=== PATIENT | female | born 1980 | race Caucasian/White ===

== ENCOUNTER → 2016-05-23 | Outpatient (CLI) | payer OTHER ==
[~2016-05-23] MED LIST: LINZ290C PO; MULT1TAB10 PO; PANT40TA2 PO; STOO100T PO; ZOLO50TA PO
--- NOTE | 2016-05-23 17:01 | REP ---
Clinical: thoracic paraspinal pain. Technique: AP, lateral, and swimmers views. Findings: Alignment and kyphosis is maintained. Vertebral bodies intact. No acute fracture / compression injury or subluxation. No degenerative changes. Paravertebral soft tissues are normal. Impression: Normal thoracic spine series. Signed by Anibal Kee MD 05/23/2016 04:52 P
== END ==
LOC: M LRY 16:18
PROVIDERS: ATTEND Family Medicine
DX: M54.6 Pain in thoracic spine (principal)

== ENCOUNTER → 2016-05-25 | Outpatient (REF) | payer OTHER | LOC: M SFHCWAGY 11:12 | PROVIDERS: ATTEND Nurse Practitioner Family | DX: Z12.4 Encounter for screening for malignant neoplasm of cervix (principal) ==

== ENCOUNTER → 2016-06-11 | Outpatient (CLI) | payer OTHER ==
[~2016-06-11] VITALS: Ht 165.1 cm; Wt 70.3 kg
[~2016-06-11] MED LIST changes: +NS 1,000 ML IV SCH; +PROPOFOL 200 MG/20 ML VIAL As Ordered ONE
--- NOTE | 2016-06-11 13:08 | ROOR ---
Patient Name: Margaret Triplett Procedure Date: 06/11/2016 12:44 PM Date of : 1980 Age: 36 Room: [facility] Gender: Female Note Status: Finalized Procedure: Colonoscopy Indications: Generalized abdominal pain, Irritable bowel syndrome with constipation, Constipation Providers: Andreas MCCALLUM MD Referring MD: Claribel BERNABE MD Requesting Provider: Medicines: Monitored Anesthesia Care Complications: No immediate complications. Procedure: Pre-Anesthesia Assessment: - The heart rate, respiratory rate, oxygen saturations, blood pressure, adequacy of pulmonary ventilation, and response to care were monitored throughout the procedure. The Colonoscope was introduced through the anus and advanced to the terminal ileum, with identification of the appendiceal orifice and IC valve. The colonoscopy was performed without difficulty. The patient tolerated the procedure well. The quality of the bowel preparation was good. The bowel preparation used was polyethylene glycol (PEG) and magnesium citrate. Findings: The perianal and digital rectal examinations were normal. The colon (entire examined portion) was significantly redundant. The entire examined colon appeared normal on direct and retroflexion views. The terminal ileum appeared normal. (Exam: Complete, Prep: Good or Excellent.) Impression: -(Exam: Complete, Prep: Good ) - Redundant colon. - The entire colon is normal on direct and retroflexion views. - The examined portion of the ileum was normal. - No specimens collected. Recommendation: - Use Linzess (linaclotide) 290 mcg PO daily. Andreas Mccallum MD Andreas MCCALLUM MD 06/11/2016 1:08:40 PM This report has been signed electronically. Number of Addenda: 0 Note Initiated On: 06/11/2016 12:44 PM Estimated Blood Loss: Estimated blood loss: none.
[2016-06-11 13:25] VITALS: BP 115/58
== END | disposition home or self-care (01) ==
LOC: M OPP 11:29
PROVIDERS: ATTEND Internal Medicine Gastroenterology
DX: K58.1 Irritable bowel syndrome with constipation (principal); Q39.9 Congenital malformation of esophagus, unspecified; E78.5 Hyperlipidemia, unspecified; F33.9 Major depressive disorder, recurrent, unspecified; F41.9 Anxiety disorder, unspecified; E34.9 Endocrine disorder, unspecified; Z79.899 Other long term (current) drug therapy

== ENCOUNTER → 2016-10-13 | Outpatient (CLI) | payer OTHER ==
[~2016-10-13] MED LIST changes: +CIPR-249 PO; +FLAG500T PO; +IBUP-1022 PO; +MIRA3350 PO; -NS 1,000 ML IV SCH; +PROBCAP4 PO; -PROPOFOL 200 MG/20 ML VIAL As Ordered ONE
--- NOTE | 2016-10-13 10:06 | REP ---
Gastric emptying nuclear scintigraphy: History: Nausea, generalized abdominal pain. Technique: 0.949 mCi of technetium-99m sulfur colloid was ingested in two scrambled eggs and 6 ounces of water and sequential anterior and posterior images are acquired for an 89-minute imaging observation period. Regions of interest are drawn around the stomach to plot gastric emptying. Scintigraphic findings: Expected T1/2 is 90 minutes. 58 % emptying is observed in this patient during the 89-minute imaging observation period, for a calculated T1/2 in this patient of 83 minutes. Impression: Normal gastric emptying. Signed by Emerson Chavez MD 10/13/2016 09:57 A
== END ==
LOC: M RAD 07:57
PROVIDERS: ATTEND Physician Assistant Medical
DX: R11.2 Nausea with vomiting, unspecified (principal); R68.81 Early satiety; R10.84 Generalized abdominal pain

== ENCOUNTER → 2017-05-02 | Outpatient (REF) | payer OTHER | LOC: M LAB REF 09:20 | DX: R39.15 Urgency of urination (principal) ==

== ENCOUNTER → 2017-07-20 | Outpatient (REF) | payer OTHER ==
[2017-07-20 17:12] LABS: CHLAMYDIA DNA AMPLIFICATION NEGATIVE (NEGATIVE); GC DNA AMPLIFICATION NEGATIVE (NEGATIVE)
== END ==
LOC: M SFHCWAGY 15:27
DX: N89.8 Other specified noninflammatory disorders of vagina (principal); Z11.3 Encounter for screening for infections with a predominantly sexual mode of transmission

== ENCOUNTER 2017-11-02 13:19 | Emergency (ER) | payer OTHER | END 2017-11-02 16:08 | disposition home or self-care (01) | LOC: M ED 13:19 | DX: H04.512 Dacryolith of left lacrimal passage (principal); F41.9 Anxiety disorder, unspecified; F32.9 Major depressive disorder, single episode, unspecified; Z79.899 Other long term (current) drug therapy; Z88.1 Allergy status to other antibiotic agents | CPT/HCPCS: 99283 ==

== ENCOUNTER 2018-02-22 15:05 | Emergency (ER) | payer OTHER ==
[2018-02-22] MEDS: METOCLOPRAMIDE INJ 10MG/2ML VIAL (J2765) IV (15:56)
[2018-02-22] MEDS: NS 1,000 ML IV (15:56)
[2018-02-22 15:58] LABS: BASO # 0.1 10^3/uL (0.0-0.2); BASO % 0.6 % (0.0-1.0); EOS % 0.3 % (0.0-3.0); HEMATOCRIT 44.5 % (36.0-47.0); HEMOGLOBIN 15.2 g/dl (12.0-15.5); IMMATURE GRANULOCYTE % 0.3 % (0-3.0); LYMPH # 2.1 10^3/uL (1.5-4.5); LYMPH % 20.3 % (24.0-44.0); MEAN CORPUSCULAR HEMOGLOBIN 31.5 pg (27.0-33.0); MEAN CORPUSCULAR HGB CONC 34.2 g/dl (32.0-36.5); MEAN CORPUSCULAR VOLUME 92.1 fl (80.0-96.0); MONO # 0.7 10^3/uL (0.0-0.8); MONO % 6.7 % (0.0-5.0); NEUTROPHILS # 7.3 10^3/uL (1.8-7.7); NEUTROPHILS % 71.8 % (36.0-66.0); PLATELET COUNT, AUTOMATED 290 10^3/uL (150-450); RED BLOOD COUNT 4.83 10^6/uL (4.00-5.40); RED CELL DISTRIBUTION WIDTH 12.7 % (11.5-14.5); WHITE BLOOD COUNT 10.2 10^3/uL (4.0-10.0)
[2018-02-22 16:23] LABS: ALBUMIN 3.9 GM/DL (3.2-5.2); ALBUMIN/GLOBULIN RATIO 1.05 (1.00-1.93); ALKALINE PHOSPHATASE 66 U/L (45-117); ALT/SGPT 22 U/L (12-78); ANION GAP 9 MEQ/L (8-16); AST/SGOT 15 U/L (7-37); BILIRUBIN,DIRECT 0.1 MG/DL (0.0-0.2); BILIRUBIN,TOTAL 0.5 MG/DL (0.2-1.0); BLOOD UREA NITROGEN 7 MG/DL (7-18); CALCIUM LEVEL 8.8 MG/DL (8.5-10.1); CARBON DIOXIDE LEVEL 24 MEQ/L (21-32); CHLORIDE LEVEL 104 MEQ/L (98-107); CREATININE FOR GFR 0.82 MG/DL (0.55-1.30); GLOMERULAR FILTRATION RATE > 60.0 (>60); GLUCOSE, FASTING 86 MG/DL (70-100); LIPASE 142 U/L (73-393); POTASSIUM SERUM 4.2 MEQ/L (3.5-5.1); SODIUM LEVEL 137 MEQ/L (136-145); TOTAL PROTEIN 7.6 GM/DL (6.4-8.2)
[2018-02-22 17:02] LABS: KETONE, URINE AUTO RFX 2+ mg/dL (NEGATIVE); LEUKOCYTE ESTERASE UR AUTO RFX NEGATIVE (NEGATIVE); MUCUS, URINE RFX MODERATE (NEGATIVE); NITRITE, URINE AUTO RFX NEGATIVE (NEGATIVE); RBC, URINE AUTO RFX 4 /HPF (0-3); SPECIFIC GRAVITY UR AUTO RFX 1.024 (1.002-1.035); SQUAM EPITHELIAL CELL UR AURFX 2 /HPF (0-6); WBC, URINE AUTO RFX 2 /HPF (0-3)
== END 2018-02-22 17:35 | disposition home or self-care (01) ==
LOC: M ED 15:05
DX: F19.939 Other psychoactive substance use, unspecified with withdrawal, unspecified (principal); F41.9 Anxiety disorder, unspecified; F32.9 Major depressive disorder, single episode, unspecified; Z72.0 Tobacco use; Z79.899 Other long term (current) drug therapy; Z88.1 Allergy status to other antibiotic agents
CPT/HCPCS: J2765

== ENCOUNTER → 2018-02-28 | Outpatient (REF) | payer OTHER | LOC: M LAB REF 16:16 | DX: R30.0 Dysuria (principal) | CPT/HCPCS: 87086 ==

== ENCOUNTER 2020-01-29 17:01 | Emergency (ER) | payer MEDICAID, OTHER, SELFPAY ==
[~2020-01-29] VITALS: Ht 165.1 cm; Wt 75.5 kg
[~2020-01-29 17:01] MED LIST changes: +AUGM875T28 PO; +BUPR150T3; +OLAN10TA2; -PANT40TA2 PO; +PANT40TA29 PO; +REGL10TA6 PO; +SPRI28TA
[2020-01-29] MEDS ORDERED: ZOLO50TA PO ×2 (17:10→19:16)
[2020-01-29 18:55] LABS: BASO # 0.1 10^3/uL (0.0-0.2); BASO % 0.7 % (0.0-1.0); EOS # 0.2 10^3/uL (0.0-0.5); EOS % 1.8 % (0.0-3.0); HEMATOCRIT 41.9 % (36.0-47.0); HEMOGLOBIN 13.9 g/dl (12.0-15.5); LYMPH # 2.6 10^3/uL (1.5-5.0); LYMPH % 28.9 % (24.0-44.0); MEAN CORPUSCULAR HEMOGLOBIN 31.9 pg (27.0-33.0); MEAN CORPUSCULAR HGB CONC 33.2 g/dl (32.0-36.5); MEAN CORPUSCULAR VOLUME 96.1 fl (80.0-96.0); MONO # 0.6 10^3/uL (0.0-0.8); MONO % 7.1 % (0.0-5.0); NEUTROPHILS # 5.5 10^3/uL (1.5-8.5); NEUTROPHILS % 61.2 % (36.0-66.0); PLATELET COUNT, AUTOMATED 284 10^3/uL (150-450); RED BLOOD COUNT 4.36 10^6/uL (4.00-5.40)
[2020-01-29 19:08] LABS: INR 0.96
[2020-01-29] MEDS ORDERED: ALPRAZolam 0.5 MG TAB PO ONE (19:15)
[2020-01-29 19:32] LABS: ACETAMINOPHEN LEVEL 8.8 UG/ML (10.0-30.0); ALBUMIN 3.9 GM/DL (3.2-5.2); ALT/SGPT 14 U/L (12-78); BILIRUBIN,DIRECT < 0.1 MG/DL (0.0-0.2); BILIRUBIN,TOTAL 0.2 MG/DL (0.2-1.0); FREE THYROXINE INDEX 2.8 % (1.3-4.8); LIPASE 183 U/L (73-393); T UPTAKE 31 % (30-39); THYROXINE (T4) 9.1 UG/DL (4.5-12.0); TOTAL PROTEIN 7.4 GM/DL (6.4-8.2)
[2020-01-29 20:53] VITALS: BP 119/71
== END 2020-01-29 20:58 | disposition home or self-care (01) ==
LOC: M ED 17:01
DX: F41.9 Anxiety disorder, unspecified (principal); R09.89 Other specified symptoms and signs involving the circulatory and respiratory systems; N92.6 Irregular menstruation, unspecified; K21.9 Gastro-esophageal reflux disease without esophagitis; F32.9 Major depressive disorder, single episode, unspecified; Z79.899 Other long term (current) drug therapy; Z88.1 Allergy status to other antibiotic agents
CPT/HCPCS: 36415; 80047; 80076; 81001; 83690; 84436; 84443; 84479; 84702; 85025; 85610; 99283; G0480

== ENCOUNTER 2020-03-10 11:03 | Emergency (ER) | payer SELFPAY ==
[~2020-03-10] VITALS: Ht 12.7 cm; Wt 78.6 kg
[2020-03-10] MEDS ORDERED: ZOLO25TA PO (12:25)
[2020-03-10 12:35] VITALS: BP 119/56
== END 2020-03-10 13:00 | disposition home or self-care (01) ==
LOC: M ED 11:03
DX: F41.9 Anxiety disorder, unspecified (principal); F32.9 Major depressive disorder, single episode, unspecified; Z88.1 Allergy status to other antibiotic agents; Z79.899 Other long term (current) drug therapy

== ENCOUNTER 2020-05-16 10:44 | Emergency (ER) | payer MEDICAID, SELFPAY ==
[~2020-05-16] VITALS: Ht 165.1 cm; Wt 77.5 kg
[~2020-05-16 10:44] MED LIST changes: -BUPR150T3; +BUPR150T4; +ZOLO25TA PO
--- OUTSIDE RECORDS SUMMARY | 2020-05-16 10:55 | CCD ---
Author Author [facility] Organization [facility] Address Unknown Phone Unavailable Support Name Relationship Address Phone QUINN [place] [address] Olvin Sanchez DDS Next Of Kin [address] [place] [address] ROBERTO CARLOS GERONIMO Next Of Kin [address] [facility] [address] [place] [address] BOBALLIE Next Of Kin [address] [address] [employer] Next Of Kin [address] [place] [address] DAYSINN Next Of Kin [address] [facility] [place] [address] DAYS INN Next Of Kin [address] [address] [place] [address] UE Next Of Kin Unknown Unavailable DEBORAH WOODS Next Of Kin [address] [place] [address] UNEMPLOYED Next Of Kin [address] [place] [address] [employer] Next Of Kin [address] [place] [address] HARRISON WADDELL Next Of Kin [address] [facility] [address]GE [address] [place] [address] [employer] Next Of Kin [address] [facility] [address] [place] [address] LAUREANO NUNEZ Next Of Kin [address] [place] [address] DEBORAH WOODS ECON [address] [place] [address] [phone] Deborah Chau ECON Unknown Unavailable Re-disclosure Warning The records that you are about to access may contain information from federally-assisted alcohol or drug abuse programs. If such information is present, then the following federally mandated warning applies: This information has been disclosed to you from records protected by federal confidentiality rules (42 CFR part 2). The federal rules prohibit you from making any further disclosure of this information unless further disclosure is expressly permitted by the written consent of the person to whom it pertains or as otherwise permitted by 42 CFR part 2. A general authorization for the release of medical or other information is NOT sufficient for this purpose. The Federal rules restrict any use of the information to criminally investigate or prosecute any alcohol or drug abuse patient.The records that you are about to access may contain highly sensitive health information, the redisclosure of which is protected by Article 27-F of the [facility] Public Health law. If you continue you may have access to information: Regarding HIV / AIDS; Provided by facilities licensed or operated by the [facility] Office of Mental Health; or Provided by the [facility] Office for People With Developmental Disabilities. If such information is present, then the following [facility] mandated warning applies: This information has been disclosed to you from confidential records which are protected by state law. State law prohibits you from making any further disclosure of this information without the specific written consent of the person to whom it pertains, or as otherwise permitted by law. Any unauthorized further disclosure in violation of state law may result in a fine or nursing home sentence or both. A general authorization for the release of medical or other information is NOT sufficient authorization for further disc losure. Family History Family Member Name Family Member Gender Family Member Status Date o f Status Description Data Source(s) Unknown Unknown Problem MEDENT ([facility]) maternal aunt Unknown Unknown Problem MEDENT ([facility] ) Aunt/ moms twin dx age 54 Encounters Encounter Providers Location Date Indications Data Source(s ) [address] [address] 05/09/2019 12:00:00 AM EST eCW1 ([facility]) Insurance Providers Payer name Policy type / Coverage type Policy ID Covered libertarian ID Covered libertarian's relationship to caputo Policy Caputo Plan Information SELF PAY ONLY [id number] SP [id number] UN COMMUNITY PLAN MCDO [id number] SP [id number] UN COMMUNITY PLAN MCDO [id number] SP [id number] Managed Care - [facility] Community Plan P UNAVAILABLE S UNAVAILABLE Medicaid S [id number] S [id number] ANSI-Medicaid [id number] ANSI-Medicaid [id number] ANSI-Medicaid [id number] ANSI-Medicaid [id number] ANSI-Medicaid [id number] ANSI-Medicaid [id number] ANSI-Medicaid [id number] ANSI-Medicaid [id number] ANSI-Medicaid [id number] ANSI-Medicaid [id number] ANSI-Medicaid [id number] ANSI-Medicaid [id number] ANSI-Medicaid [id number] Managed Care - [facility] UNAVAILABLE S [facility] ANSI-Medicaid [id number] [facility] [id number] Self [id number] ANSI-Medicaid [id number] ANSI-Medicaid [id number] ANSI-Medicaid [id number] ANSI-Medicaid [id number] ANSI-Medicaid [id number] ANSI-Medicaid [id number] ANSI-Medicaid [id number] ANSI-Medicaid [id number] ANSI-Medicaid [id number] ANSI-Medicaid [id number] ANSI-Medicaid [id number] ANSI-Medicaid [id number] ANSI-Medicaid [id number] ANSI-Medicaid [id number] [facility] Health Maintenance Organization (HMO) [id number] Self [id number] [facility] Health Maintenance Organization (HMO) [id number] Self [id number] ANSI-Medicaid [id number] ANSI-Medicaid [id number] ANSI-Medicaid [id number] ANSI-Medicaid [id number] ANSI-Medicaid [id number] ANSI-Medicaid [id number] ANSI-Medicaid [id number] ANSI-Medicaid [id number] ANSI-Medicaid [id number] ANSI-Medicaid [id number] ANSI-Medicaid [id number] ANSI-Medicaid [id number] ANSI-Medicaid [id number] ANSI-Medicaid [id number] ANSI-Medicaid [id number] [facility] I [id number] Self [id number] [facility] Health Maintenance Organization (HMO) [id number] Self [id number] [place] [facility] Health Maintenance Organization (HMO) [id number] Self [id number] [facility](MCAID) O [id number] O [id number] [employer] COMMUNITY PLAN MCDHMO [id number] SP [id number] [place] [facility] Health Maintenance Organization (HMO) [id number] Self [id number] [facility] Health Maintenance Organization (HMO) [id number] Self [id number] [employer] [facility] Medigap Part B [id number] Self [id number] Medicaid [place] Medigap Part B [id number] Self [id number] [facility] Health Maintenance Organization (HMO) [id number] Self [id number] [facility] Medigap Part B [id number] Self [id number] [facility] Medigap Part B [id number] Self [id number] Medicaid [place] Medigap Part B [id number] Self [id number] [facility] Health Maintenance Organization (HMO) [id number] Self [id number] [employer] COMMUNITY PLAN MCDHMO [id number] SP [id number] [employer] COMMUNITY PLAN MCDHMO [id number] SP [id number] MEDICAID [id number] SP [id number] [employer] [facility] Health Maintenance Organization (HMO) Self [facility] Health Maintenance Organization (HMO) Self [facility] SHIELD-CLINIC [id number] [facility] ALEXIS PLAN [id number] SP [id number] [facility]-CLINIC [id number] 18 [id number] Social History Code Duration Value Status Description Data Source(s ) Smoking 05/04/2019 12:00:00 AM EST Current Smoker completed Curre nt Smoker eCW1 ([facility]) Smoking 05/04/2019 12:00:00 AM EST Current Smoker completed Curre nt Smoker eCW1 ([facility]) Smoking 05/04/2019 12:00:00 AM EST Current Smoker completed Curre nt Smoker eCW1 ([facility])
--- OUTSIDE RECORDS SUMMARY | 2020-05-16 10:55 | CCD ---
Author Author [facility] Organization 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 Active 173534349 Problem Genital herpes simplex, unspecified site A60.00 Active 92488589 Problem Bipolar 1 disorder F31.9 Active 858581429 Problem Tobacco use disorder F17.200 Active 036087493 Problem Other chronic pain G89.29 Active 23561655 Problem Herpes simplex vulvovaginitis A60.04 Active 27 455055 Problem Anxiety F41.9 Active 28956596 Problem Dysthymia F34.1 Active 03181368 ALLERGIES Allergen (clinical drug ingredient) Drug/Non Drug Allergy do cumented on EMR Reaction Allergy Type Onset Date Status Doxycycline (Rosacea) rash all over Drug Allergy Active ENCOUNTERS from 1980 to 2020-02-29 Encounter Location Date Provider Diagnosis [facility] [address] [place] [phone] Jul, Deborah Palmer Vaginal odor N89.8 a nd Screening examination for sexually transmitted disease Z11.3 IMMUNIZATIONS Vaccine Route Administration Date Status Influenza (6mo & up) Fluzone Unknown Mar 06, 2014 Ref used SOCIAL HISTORY Tobacco Use: Social History Observation Description Date Details (start date - stop date) Current Smoker Sex Assigned At : Social History Observation Description Sex Assigned At Unknown Sexual Hx: Question Answer Notes Had sex in the last 12 months (vaginal, oral, or anal)? Yes LMP: 04/04/18 Have you ever had an STD? Yes Prevention Strategies discussed: Condoms with Men only Use protection? No Other? No Herpes? No Syphilis? No GC? Yes Chlamydia? Yes Alcohol Screening: Question Answer Notes Did you have a drink containing alcohol in the past year? Ye s Points 1 Interpretation Negative How often did you have six or more drinks on one occas ion in the past year? Never (0 points) How many drinks did you have on a typica l day when you were drinking in the past year? 1 or 2 (0 points) How often did you have a drink containing alcohol in t he past year? Monthly or less (1 point) BMI Care Goal Follow-Up Question Answer Notes Above Normal BMI Follow-Up Dietary management educatio n, guidance, and counseling Tobacco Use: Question Answer Notes Are you a: current every day smoker REASON FOR REFERRAL No Information VITAL SIGNS Weight 154 lbs Jul, Height 65 in Jul, BMI 25.62 kg/m2 Jul, Heart Rate 83 /min Jul, Respiratory Rate 18 /min Jul, Temperature 97.6 degrees Fahrenheit Jul, Oximetry 100 Jul, Blood pressure systolic 130 mm Hg Jul, Blood pressure diastolic 78 mm Hg Jul, MEDICATIONS Medication SIG (Take, Route, Frequency, Duration) Notes Start Da te End Date Status Seroquel 50 MG 1 tablet Once a day Orally 30 day(s) for 30 Active Probiotic - 1 tab Orally Daily Activ e Biotin 1 cap Orally Daily Active Citalopram Hydrobromide 20 MG 1 tablet Orally Once a day for 90 day(s ) Active SEROquel 50 MG 1 tablet Orally Once a day for 30 day(s) Active Zofran 4 MG 1 tablet Orally Twice a day as needed Mar, Active PROCEDURES No Information RESULTS REASON FOR VISIT INFECTION? MEDICAL (GENERAL) HISTORY Type Description Date Medical History Anxiety Medical History Gerd Medical History Allergies Medical History gallstone Medical History Blocked tear duct on left, s/p probing Surgical History 1/2 thyroid removed Surgical History Left side cheek and tear duct Surgical History [place] teeth extraction Surgical History 2002 Surgical History Colonoscopy 03/2016 Surgical History Endoscopy 03/2016 Surgical History eye surgery 11/2017 Hospitalization History Childbirth Hospitalization History Kidney infection at 17 while pregnan t Goals Section No Information Health Concerns No Information MEDICAL EQUIPMENT No Information MENTAL STATUS No Information FUNCTIONAL STATUS No Information ASSESSMENTS Encounter Date Diagnosis Assessment Notes Treatment Notes Treatm ent Clinical Notes Jul, Vaginal odor (ICD-10 - N89.8) heavy menses today, unable to perform wet prep, no odor noted, will treat if cultures pos Jul, Screening examination for se xually transmitted disease (ICD-10 - Z11.3) PLAN OF TREATMENT Medication Medication Name Sig Start Date Stop Date Seroquel 50 MG 1 tablet Once a day Orally 30 day(s) for 30 SEROquel 50 MG 1 tablet Orally Once a day for 30 day(s) Citalopram Hydrobromide 20 MG 1 tablet Orally Once a day for 90 day(s) Treatment Notes Assessment Notes Clinical Notes Vaginal odor heavy menses today, unable to perform wet prep, no odor noted, will treat if cultures pos Next Appt Details prn Reason:f/u after labs Follow Up:prnf/u after labs Insurance Providers Payer Name Payer Address Payer Phone Insured Name Patient Relati onship to Insured Coverage Start Date Coverage End Date [facility] COMMUNITY PLAN [facility] [address] [facility] [address] [phone] LAUREANO NUNEZ self
[2020-05-16] MEDS ORDERED: ACET-683 PO (10:59)
--- OUTSIDE RECORDS SUMMARY | 2020-05-16 11:33 | CCD ---
Author Author [facility] Organization [facility] Address Unknown Phone Unavailable Support Name Relationship Address Phone CHERIE NUNEZ Next Of Kin [address] [place] [address] CH[place] [address] Olvin Sanchez DDS Next Of Kin [address] [place] [address] ROBERTO CARLOS GERONIMO Next Of Kin [phone] [address] BOBALLIE Next Of Kin [address] [address] CONVERGYS Next Of Kin [address] [place] [address] DAYSINN Next Of Kin [address] [facility] [place] [address] DAYS INN Next Of Kin [address] [address] [place] [address] UE Next Of Kin Unknown Unavailable DEBORAH WOODS Next Of Kin [address] [place] [address] UNEMPLOYED Next Of Kin [address] [place] [address] [employer] Next Of Kin [address] [place] [address] HARRISON WADDELL Next Of Kin [address] [facility] J[facility]GE LU[address] [place] [address] [employer] Next Of Kin [address] [facility] [address] [place] [address] LAUREANO NUNEZ Next Of Kin [address] [place] [address] DEBORAH WOODS ECON [address] [place] [address] [phone] Deborah Chau Unknown Unavailable Re-disclosure Warning The records that [...] is protected by Article 27-F of the [facility] Public Health law. If you continue you may have access to information: Regarding HIV / AIDS; Provided by facilities licensed or operated by the [facility] Office of Mental Health; or Provided by the [facility] Office for People With Developmental Disabilities. If such information is present, then the following [facility] mandated warning applies: This information has been [...] law may result in a fine or fpc sentence or both. A general authorization for the release of medical or other information is NOT sufficient authorization for further disc losure. Family History Family Member Name Family Member Gender Family Member Status Date o f Status Description Data Source(s) Unknown Unknown Problem MEDENT ([facility]) maternal aunt Unknown Unknown Problem [facility] Aunt/ moms twin dx age 54 Encounters Encounter Providers Location Date Indications Data Source(s ) [id number] [place] [address] 05/09/2019 12:00:00 AM EST eCW1 ([facility]) Insurance Providers Payer name Policy type / Coverage type Policy ID Covered alliance party ID Covered alliance party's relationship to caputo Policy Caputo Plan Information EMEDNY [id number] SP [id number] SELF PAY ONLY [id number] SP [id number] COMMUNITY PLAN [facility] [id number] SP [id number] [facility] COMMUNITY PLAN MCDO [id number] SP [id number] Managed Care - [facility] Community Plan P UNAVAILABLE S UNAVAILABLE Medicaid S [id number] S [id number] ANSI-Medicaid [id number] ANSI-Medicaid [id number] ANSI-Medicaid [id number] ANSI-Medicaid [id number] ANSI-Medicaid [id number] ANSI-Medicaid [id number] ANSI-Medicaid [id number] ANSI-Medicaid [id number] ANSI-Medicaid [id number] ANSI-Medicaid [id number] ANSI-Medicaid [id number] ANSI-Medicaid [id number] ANSI-Medicaid [id number] Managed Care - [facility] P UNAVAILABLE [facility] ANSI-Medicaid [id number] [facility] I [id number] Self [id number] ANSI-Medicaid [id number] ANSI-Medicaid [id number] ANSI-Medicaid [id number] ANSI-Medicaid [id number] ANSI-Medicaid [id number] ANSI-Medicaid [id number] ANSI-Medicaid [id number] ANSI-Medicaid [id number] ANSI-Medicaid [id number] ANSI-Medicaid [id number] ANSI-Medicaid [id number] ANSI-Medicaid [id number] ANSI-Medicaid [id number] ANSI-Medicaid [id number] [facility] Health Maintenance Organization (HMO) [id number] Self [id number] [facility] Health Maintenance Organization (HMO) [id number] Self [id number] ANSI-Medicaid [id number] ANSI-Medicaid [id number] ANSI-Medicaid [id number] ANSI-Medicaid [id number] ANSI-Medicaid [id number] ANSI-Medicaid [id number] ANSI-Medicaid [id number] ANSI-Medicaid [id number] ANSI-Medicaid [id number] ANSI-Medicaid [id number] ANSI-Medicaid [id number] ANSI-Medicaid [id number] ANSI-Medicaid [id number] ANSI-Medicaid [id number] ANSI-Medicaid [id number] [facility] I [id number] Self [id number] [place] [facility] Maintenance Organization (HMO) [id number] Self [id number] [place] [facility] Health Maintenance Organization (HMO) [id number] Self [id number] [facility] O [id number] O [id number] [employer] COMM[employer] MCDHMO [id number] SP [id number] [place] [facility] Health Maintenance Organization (HMO) [id number] Self [id number] [place] [facility] Health Maintenance Organization (HMO) [id number] Self [id number] [employer] [facility] Ch[facility]/M[facility] Medigap Part B [id number] Self [id number] Medicaid [place] Medigap Part B [id number] Self [id number] [facility] Health Maintenance Organization (HMO) [id number] Self [id number] [facility] Medigap Part B [id number] Self [id number] [facility] Medigap Part B [id number] Self [id number] Medicaid [place] Medigap Part B [id number] Self [id number] [facility] Health Maintenance Organization (HMO) [id number] Self [id number] [employer] COMMUNITY PLAN MCDHMO [id number] SP [id number] [employer] COMMUNITY PLAN MCDHMO [id number] SP [id number] MEDICAID [id number] SP [id number] [facility] Health Maintenance Organization (HMO) Self [facility] Health Maintenance Organization (HMO) Self [facility] BLUE SHIELD-CLINIC [id number] [facility] ALEX[place] PLAN [id number] SP [id number] [facility] BLUE SHIELD-CLINIC [id number] 18 [id number] Social History Code Duration Value Status Description Data Source(s ) Smoking 05/04/2019 12:00:00 AM EST Current Smoker completed Curre nt Smoker eCW1 ([facility]) Smoking 05/04/2019 12:00:00 AM EST Current Smoker completed Curre nt Smoker eCW1 ([facility]) Smoking 05/04/2019 12:00:00 AM EST Current Smoker completed Curre nt Smoker eCW1 ([facility])
[2020-05-16 11:39] LABS: BASO # 0.1 10^3/uL (0.0-0.2); BASO % 0.6 % (0.0-1.0); EOS # 0.1 10^3/uL (0.0-0.5); EOS % 0.5 % (0.0-3.0); HEMATOCRIT 41.8 % (36.0-47.0); HEMOGLOBIN 14.2 g/dl (12.0-15.5); LYMPH # 1.8 10^3/uL (1.5-5.0); LYMPH % 14.4 % (24.0-44.0); MEAN CORPUSCULAR HEMOGLOBIN 31.5 pg (27.0-33.0); MEAN CORPUSCULAR VOLUME 92.7 fl (80.0-96.0); MONO # 0.8 10^3/uL (0.0-0.8); MONO % 6.1 % (2.0-8.0); NEUTROPHILS # 9.7 10^3/uL (1.5-8.5); PLATELET COUNT, AUTOMATED 281 10^3/uL (150-450); RED BLOOD COUNT 4.51 10^6/uL (4.00-5.40); WHITE BLOOD COUNT 12.5 10^3/uL (4.0-10.0)
--- NOTE | 2020-05-16 11:51 | REP ---
INDICATION: fall recently, now unable to move R shoulder. COMPARISON: None. TECHNIQUE: Three views of the right shoulder are provided. FINDINGS: The right glenohumeral and acromioclavicular joints are normally aligned. No fracture or subluxation is seen. There is a small focus of dystrophic calcification adjacent to the superolateral aspect of the humeral head consistent with calcific tendinitis or bursitis. Periarticular soft tissues are otherwise unremarkable. No abnormality in the visualized right rib cage. IMPRESSION: Periarticular soft tissue calcification consistent with calcific tendinitis or bursitis. No traumatic abnormality noted. <Electronically signed by Remi Chavez > 05/16/20 [id number]
[2020-05-16 12:14] LABS: C REACTIVE PROTEIN QUANTITATIV 0.32 MG/DL (0.00-0.30); FREE T4 0.92 NG/DL (0.76-1.46); HCG, SERUM QUANTITATIVE < 1.0 MIU/ML; THYROID STIMULATING HORMONE 0.723 uIU/ML (0.358-3.740)
[2020-05-16] MEDS ORDERED: IBUP80TA PO (12:27)
[2020-05-16] MEDS ORDERED: IBUPROFEN 800 MG TAB PO ONE (12:30)
[2020-05-16 12:44] LABS: ERYTHROCYTE SEDIMENTATION RATE 11 mm/hr (0-20)
[2020-05-16 12:54] VITALS: BP 122/73
== END 2020-05-16 12:58 | disposition home or self-care (01) ==
LOC: M ED 10:44
DX: M75.51 Bursitis of right shoulder (principal); E07.9 Disorder of thyroid, unspecified; N93.8 Other specified abnormal uterine and vaginal bleeding; Z88.1 Allergy status to other antibiotic agents; F17.210 Nicotine dependence, cigarettes, uncomplicated

== ENCOUNTER → 2020-05-27 | Outpatient (REF) | payer MEDICAID ==
[~2020-05-27] MED LIST changes: +ACET-683 PO; +IBUP80TA PO
== END ==
LOC: M SFHCWAGY 13:48
PROVIDERS: ATTEND Nurse Practitioner Family
DX: Z12.4 Encounter for screening for malignant neoplasm of cervix (principal); Z01.419 Encounter for gynecological examination (general) (routine) without abnormal findings

== ENCOUNTER → 2020-05-27 | Outpatient (CLI) | payer MEDICAID ==
[2020-05-27 15:58] LABS: BASO # 0.1 10^3/uL (0.0-0.2); BASO % 0.7 % (0.0-1.0); EOS # 0.1 10^3/uL (0.0-0.5); EOS % 1.2 % (0.0-3.0); HEMATOCRIT 43.2 % (36.0-47.0); HEMOGLOBIN 14.4 g/dl (12.0-15.5); LYMPH # 2.5 10^3/uL (1.5-5.0); LYMPH % 26.7 % (24.0-44.0); MEAN CORPUSCULAR HEMOGLOBIN 31.3 pg (27.0-33.0); MEAN CORPUSCULAR HGB CONC 33.3 g/dl (32.0-36.5); MEAN CORPUSCULAR VOLUME 93.9 fl (80.0-96.0); MONO # 0.6 10^3/uL (0.0-0.8); NEUTROPHILS # 5.9 10^3/uL (1.5-8.5); NEUTROPHILS % 64.2 % (36.0-66.0); PLATELET COUNT, AUTOMATED 332 10^3/uL (150-450); WHITE BLOOD COUNT 9.2 10^3/uL (4.0-10.0)
--- NOTE | 2020-05-27 16:02 | REP ---
INDICATION: GLOBUS SENSATION. COMPARISON: None. TECHNIQUE: AP and 2 lateral views are presented. Three views. FINDINGS: There is straightening of the normal cervical lordosis. The patient is status post left neck surgery with clips aligned along the trachea in the left neck suggesting previous thyroidectomy on the left. No tracheal deviation or compression is seen. Glottic and subglottic airway are unremarkable. Retropharyngeal soft tissues are not widened. The epiglottis is normal in appearance. Degenerative disc changes are noted at C5-6 and C6-7. IMPRESSION: Status post left neck/thyroid surgery with clips. Degenerative disc disease C5-6 and C6-7 with straightening of the cervical spine. Otherwise negative. <Electronically signed by Remi Chavez > 05/27/20 [id number]
[2020-05-27 16:40] LABS: ALT/SGPT 19 U/L (12-78); BILIRUBIN,TOTAL 0.3 MG/DL (0.2-1.0); BLOOD UREA NITROGEN 9 MG/DL (7-18); CARBON DIOXIDE LEVEL 26 MEQ/L (21-32); CHLORIDE LEVEL 102 MEQ/L (98-107); CREATININE FOR GFR 0.64 MG/DL (0.55-1.30); GLOMERULAR FILTRATION RATE > 60.0 (>58); GLUCOSE, FASTING 113 MG/DL (70-100); POTASSIUM SERUM 4.5 MEQ/L (3.5-5.1); SODIUM LEVEL 137 MEQ/L (136-145); TOTAL PROTEIN 7.5 GM/DL (6.4-8.2)
== END ==
LOC: M LAB 14:50
PROVIDERS: ATTEND Nurse Practitioner Family
DX: R09.89 Other specified symptoms and signs involving the circulatory and respiratory systems (principal)

== ENCOUNTER → 2020-05-27 | Outpatient (REF) | payer MEDICAID | LOC: M SFHCLERA 13:49 | PROVIDERS: ATTEND Nurse Practitioner Family | DX: R09.89 Other specified symptoms and signs involving the circulatory and respiratory systems (principal) ==

== ENCOUNTER → 2020-06-10 | Outpatient (CLI) | payer OTHER ==
[~2020-06-10] MED LIST changes: +BUPR150T12; -BUPR150T4
--- NOTE | 2020-06-10 11:47 | REPMRS ---
Patient History The patient states she had a clinical breast exam in 2020. Family history of breast cancer in maternal aunt, unknown cancer in maternal grandmother. Digital Woman Screen Mammo: June 10, 2020 - Exam #: [id number] Bilateral CC and MLO view(s) were taken. Technologist: Ana María Vargas, Technologist Prior study comparison: June 01, 2016, bilateral digital mammo screening bilat, performed at [facility]. FINDINGS: There are scattered fibroglandular densities. The Volpara volumetric breast density category is:B. There has been no change in the appearance of the mammogram from the prior studies. There is a mild amount of scattered fibroglandular density which is fairly symmetric. There is no interval development of dominant mass, architectural distortion, or grouped microcalcification suggestive of malignancy. 3-D tomosynthesis shows no additional findings. Assessment: BI-RADS/ACR category 1 mammogram. Negative Mammogram. Recommendation Routine screening mammogram of both breasts in 1 year (for women over age 40). This patient's [facility] Lifetime Breast Cancer Risk is estimated at 13.0 %. This mammogram was interpreted with the aid of an FDA-approved computer-aided dectection system. Electronically Signed By: Remi Chavez MD 06/10/20 [id number]
== END ==
LOC: M WHC 10:40
PROVIDERS: ATTEND Nurse Practitioner Family
DX: Z12.31 Encounter for screening mammogram for malignant neoplasm of breast (principal)

== ENCOUNTER → 2020-06-20 | Outpatient (CLI) | payer OTHER ==
--- NOTE | 2020-06-21 20:05 | REP ---
INDICATION: N93.9 ABNORMAL UTERINE BLEEDING COMPARISON: 02/06/2017 TECHNIQUE: Transabdominal pelvic ultrasound followed by transvaginal examination for better evaluation of the endometrium and adnexa with color Doppler evaluation of the ovaries. FINDINGS: Bladder is unremarkable and measures 10.7 x 8.3 x 7.7 cm. Heterogeneous anteverted uterus measures 12.5 x 4.1 x 4.6 cm. The endometrial complex measures 7.0 mm thickness. Nabothian cysts identified in the cervical region. Bilateral ovaries are normal in appearance and vascularity without evidence for torsion. Right ovary measures 2.8 x 1.8 x 2.3 cm and includes 1.8 cm dominant follicle. Left ovary measures 2.5 x 1.6 x 1.7 cm. No pelvic fluid or adnexal mass lesion. IMPRESSION: Essentially normal examination as described above. <Electronically signed by Anibal Kee > 06/21/202001
== END ==
LOC: M WHC 14:28
PROVIDERS: ATTEND Nurse Practitioner Family
DX: N93.9 Abnormal uterine and vaginal bleeding, unspecified (principal)

== ENCOUNTER → 2020-09-08 | Outpatient (CLI) | payer OTHER ==
--- NOTE | 2020-09-08 09:03 | REP ---
INDICATION: MASS ON BACK - HAS ALVARO US COMPARISON: None. TECHNIQUE: AP and lateral views of the right scapula. FINDINGS: The osseous structures and joint spaces are intact and normal. There is no evidence for acute fracture or dislocation. Surrounding soft tissues are unremarkable. No subcutaneous emphysema or radiodense foreign body. IMPRESSION: Normal examination. No obvious abnormality by radiographic evaluation.. <Electronically signed by Anibal Kee > 09/08/20 6730
--- NOTE | 2020-09-08 11:30 | REP ---
INDICATION: MASS ON BACK - HAS XRAY WELL. COMPARISON: None. TECHNIQUE: Real-time sonographic evaluation of posterior right chest wall performed at the site of a palpable lump. FINDINGS: At that location there is an oval nodular structure which is slightly hyperechoic. It measures 4.4 x 0.8 x 2.6 cm. This is nonspecific. IMPRESSION: Oval solid nodular structure at the site of the palpable lump measuring 4.4 x 0.8 x 2.6 cm. This is nonspecific. Further evaluation could be made with MRI with and without contrast. <Electronically signed by Jose C Peres > 09/08/20 1121
== END ==
LOC: M RAD 08:43
PROVIDERS: ATTEND Nurse Practitioner Family
DX: R22.2 Localized swelling, mass and lump, trunk (principal)

== ENCOUNTER → 2020-10-01 | Outpatient (CLI) | payer OTHER ==
[~2020-10-01] MED LIST changes: +PROHANCE 279.3MG/ML 15ML VIAL As Ordered ONE
--- NOTE | 2020-10-01 15:14 | REP ---
INDICATION: MRI CLEARANCE. COMPARISON: None. TECHNIQUE: Oakes and lateral views of the facial bones FINDINGS: Osseous structures, sinuses and soft tissues are normal. No significant metallic foreign body identified IMPRESSION: No metallic foreign body identified. <Electronically signed by Anibal Kee > 10/01/20 7255
--- NOTE | 2020-10-01 16:31 | REP ---
INDICATION: RT SIDED BACK MASS MEDIAL TO SCAPULA / MASS ON GORDON. : COMPARISON: None. TECHNIQUE: Pre and post contrast 3T MRI of the right side of the posterior upper chest was performed utilizing various sequences. Gadolinium utilized: 15 cc of ProHance FINDINGS: The technologist has encircled the clinical area of interest with multiple skin markers. This is at the level of the upper right trapezius region. There is no evidence of a mass or mass effect. There is no abnormal enhancement. All adipose tissue is seen to suppress normally with fat suppression techniques. The cortical and marrow signal seen throughout the imaged osseous structures is within normal limits. The signal throughout the imaged musculature is normal. IMPRESSION: MRI findings are within normal limits. There is no evidence of a mass. There are no abnormal enhancement characteristics. <Electronically signed by Roderick Liang > 10/01/20 0137
== END ==
LOC: M RAD 13:22
PROVIDERS: ATTEND Nurse Practitioner Family
DX: R22.2 Localized swelling, mass and lump, trunk (principal)
CPT/HCPCS: 70140; 71552; A9576

== ENCOUNTER 2021-04-11 08:30 | Emergency (ER) | payer OTHER ==
[~2021-04-11] VITALS: Ht 162.6 cm; Wt 77.3 kg
[~2021-04-11 08:30] MED LIST changes: -OLAN10TA2; +OLAN1TAB20; -PROHANCE 279.3MG/ML 15ML VIAL As Ordered ONE
[2021-04-11] MEDS ORDERED: ONDANSETRON 4 MG ORAL DISINTEGRATING TAB PO ONE (11:05)
[2021-04-11] MEDS ORDERED: IBUPROFEN 800 MG TAB PO ONE (11:05)
[2021-04-11] MEDS ORDERED: ACET-897 PO (13:24)
[2021-04-11] MEDS ORDERED: IBUP80TA PO (13:24)
[2021-04-11 13:50] VITALS: BP 117/62
== END 2021-04-11 13:51 | disposition home or self-care (01) ==
LOC: M ED 08:30
DX: R06.02 Shortness of breath (principal); R51.9 Headache, unspecified; R50.9 Fever, unspecified; F33.9 Major depressive disorder, recurrent, unspecified; F41.9 Anxiety disorder, unspecified; Z88.1 Allergy status to other antibiotic agents; Z79.899 Other long term (current) drug therapy
CPT/HCPCS: 71045; 81001; 87880; 93005; 99284; Q0162; U0003

== ENCOUNTER → 2021-06-03 | Outpatient (CLI) | payer OTHER ==
[~2021-06-03] MED LIST changes: +ACET-897 PO
[2021-06-03 13:48] LABS: FREE T4 0.77 NG/DL (0.76-1.46); THYROID STIMULATING HORMONE 1.08 uIU/ML (0.358-3.740)
== END ==
LOC: M WUC 10:33
PROVIDERS: ATTEND Student in an Organized Health Care Education/Training Program
DX: E89.0 Postprocedural hypothyroidism (principal)

== ENCOUNTER → 2021-08-10 | Outpatient (CLI) | payer OTHER ==
[~2021-08-10] MED LIST changes: +CVS1CAP2 PO; +ZOLO100T PO; +ZYRT10TA12 PO
== END ==
LOC: M LABSMTC 11:23
PROVIDERS: ATTEND Anesthesiology
DX: Z01.812 Encounter for preprocedural laboratory examination (principal); Z11.52 Encounter for screening for COVID-19

== ENCOUNTER 2021-08-14 07:05 | Day surgery (SDC) | payer OTHER ==
[~2021-08-14] VITALS: Ht 165.1 cm; Wt 90.9 kg
[~2021-08-14 07:05] MED LIST changes: +CelecoXIB 400 MG CAP PO ONE; +LR 1,000 ML IV ONE; +ceFAZolin SOD 2 GM in IV 1 EA IV ONE
[2021-08-14] MEDS ORDERED: propofoL 200 MG/20 ML VIAL As Ordered ONE (08:08)
[2021-08-14] MEDS ORDERED: LIDOCAINE 2% 100MG/5ML SDV (FOR ANES.) As Ordered ONE (08:08)
[2021-08-14] MEDS ORDERED: LIDOCAINE 1% SDV 30ML VIAL As Ordered ONE (08:08)
[2021-08-14] MEDS ORDERED: MIDAZOLAM INJ 2MG/2ML VIAL (J2250 PER 1MG) As Ordered ONE (08:08)
[2021-08-14] MEDS ORDERED: fentaNYL 100 MCG/2 ML INJECTION As Ordered ONE (08:08)
[2021-08-14] MEDS ORDERED: BUPIVACAINE HCL 0.25% 30ML VIAL As Ordered ONE (08:08)
[2021-08-14] MEDS ORDERED: ONDANSETRON 4MG/2ML VIAL As Ordered ONE (08:09)
[2021-08-14] MEDS ORDERED: ROCURONIUM BROMIDE 50 MG/5 ML VIAL As Ordered ONE (08:09)
[2021-08-14] MEDS ORDERED: dexameTHASONE 4 MG/ML 1ML VIAL (J1100 PER 1MG) As Ordered ONE (08:09)
[2021-08-14] MEDS ORDERED: SCOPOLAMINE 1MG TRANSDERMAL PATCH TOP ONE (08:15)
[2021-08-14] MEDS ORDERED: ePHEDrine SULFATE 25 MG/5 ML(5MG/ML) SYRINGE As Ordered ONE (08:49)
[2021-08-14] MEDS ORDERED: SUGAMMADEX SODIUM 500 MG/5 ML VIAL (BRIDION) As Ordered ONE (09:39)
[2021-08-14] MEDS ORDERED: OXYC1TAB23 PO (10:04)
[2021-08-14] MEDS ORDERED: ONDANSETRON 4MG/2ML VIAL IV PRN (10:30)
[2021-08-14] MEDS ORDERED: oxyCODONE 5MG TAB PO PRN (10:30)
[2021-08-14] MEDS ORDERED: LR 1,000 ML IV SCH (10:30)
[2021-08-14] MEDS ORDERED: PERCOCET 5MG/325MG TAB PO PRN (10:30)
[2021-08-14] MEDS ORDERED: fentaNYL 100 MCG/2 ML INJECTION IV PRN (10:30)
[2021-08-14] MEDS ORDERED: HYDROMORPHONE HCL 0.5 MG/ 0.5 ML SYRINGE (J1170 PER 1) IV PRN (10:30)
[2021-08-14] MEDS ORDERED: KETOROLAC 30 MG/ML 1ML VIAL IV PRN (10:35)
[2021-08-14 11:21] VITALS: BP 132/67
== END 2021-08-14 11:23 | disposition home or self-care (01) ==
LOC: M SDC 07:05
PROVIDERS: ATTEND Surgery
DX: D17.1 Benign lipomatous neoplasm of skin and subcutaneous tissue of trunk (principal); F41.9 Anxiety disorder, unspecified; E78.00 Pure hypercholesterolemia, unspecified; F32.A Depression, unspecified; Z87.891 Personal history of nicotine dependence; Z88.1 Allergy status to other antibiotic agents; Z79.899 Other long term (current) drug therapy
CPT/HCPCS: 11406; 12032; 81025; 88304; J0690; J1100; J2250; J2405; J3010

== ENCOUNTER 2023-01-23 19:32 | Emergency (ER) | payer OTHER ==
[~2023-01-23] VITALS: Ht 165.1 cm; Wt 84.4 kg
[~2023-01-23 19:32] MED LIST changes: -CelecoXIB 400 MG CAP PO ONE; -LR 1,000 ML IV ONE; +OXYC1TAB23 PO; -ceFAZolin SOD 2 GM in IV 1 EA IV ONE
[2023-01-23 20:40] LABS: HEMATOCRIT 40.7 % (36.0-47.0); HEMOGLOBIN 13.6 g/dl (12.0-15.5); MEAN CORPUSCULAR HEMOGLOBIN 28.4 pg (27.0-33.0); MEAN CORPUSCULAR HGB CONC 33.4 g/dl (32.0-36.5); PLATELET COUNT, AUTOMATED 371 10^3/uL (150-450); RED BLOOD COUNT 4.79 10^6/uL (4.00-5.40); WHITE BLOOD COUNT 12.1 10^3/uL (4.0-10.0)
[2023-01-23] MEDS ORDERED: ISOVUE-370 76% 100ML VIAL As Ordered ONE (21:08)
[2023-01-23] MEDS ORDERED: OMEPRAZOLE 20MG CAP PO ONE (22:20)
[2023-01-23] MEDS ORDERED: OMEP1CAP73 PO (22:20)
[2023-01-23 22:25] VITALS: BP 138/65; TEMP 98.6; O2SAT 97
[2023-01-24 06:34] LABS: THYROXINE (T4) 7.9 UG/DL (4.5-12.5)
== END 2023-01-23 22:35 | disposition home or self-care (01) ==
LOC: M ED 19:32
DX: R13.10 Dysphagia, unspecified (principal); G43.909 Migraine, unspecified, not intractable, without status migrainosus; F41.9 Anxiety disorder, unspecified; Z88.1 Allergy status to other antibiotic agents; Z90.89 Acquired absence of other organs; Z79.83 Long term (current) use of bisphosphonates; Z79.899 Other long term (current) drug therapy
CPT/HCPCS: 36415; 70491; 80047; 84436; 84443; 84702; 85027; 87880; 93005; 99284; Q9967

== ENCOUNTER → 2023-02-09 | Outpatient (CLI) | payer OTHER ==
[~2023-02-09] MED LIST changes: +OMEP1CAP73 PO
[2023-02-09 18:24] LABS: HIV 1&2 SCREEN NEGATIVE (NEGATIVE)
[2023-02-09 18:32] LABS: HEPATITIS B CORE ANTIBODY IGM NEGATIVE (NEGATIVE); HEPATITIS C VIRUS ABY INDEX 0.06 INDEX (<0.8)
[2023-02-10 12:29] LABS: CHLAMYDIA DNA AMPLIFICATION NEGATIVE (NEGATIVE); GC DNA AMPLIFICATION NEGATIVE (NEGATIVE)
== END ==
LOC: M PLALAB 16:34
PROVIDERS: ATTEND Nurse Practitioner Family
DX: Z12.4 Encounter for screening for malignant neoplasm of cervix (principal)

== ENCOUNTER → 2023-02-09 | Outpatient (CLI) | payer OTHER | LOC: M WHC 15:02 | PROVIDERS: ATTEND Nurse Practitioner Family | DX: Z12.31 Encounter for screening mammogram for malignant neoplasm of breast (principal) ==

== ENCOUNTER → 2023-02-14 | Outpatient (CLI) | payer OTHER | LOC: M WHC 11:24 | PROVIDERS: ATTEND Nurse Practitioner Family | DX: D25.1 Intramural leiomyoma of uterus (principal); N94.10 Unspecified dyspareunia; R10.2 Pelvic and perineal pain ==

== ENCOUNTER 2023-02-17 13:27 | Emergency (ER) | payer OTHER ==
[~2023-02-17] VITALS: Ht 165.1 cm; Wt 82.6 kg
[2023-02-17 15:02] LABS: BASO # 0.1 10^3/uL (0.0-0.2); BASO % 0.9 % (0.0-1.0); EOS # 0.1 10^3/uL (0.0-0.5); EOS % 0.9 % (0.0-3.0); HEMATOCRIT 40.8 % (36.0-47.0); HEMOGLOBIN 13.4 g/dl (12.0-15.5); LYMPH # 2.5 10^3/uL (1.5-5.0); LYMPH % 28.9 % (24.0-44.0); MEAN CORPUSCULAR HGB CONC 32.8 g/dl (32.0-36.5); MEAN CORPUSCULAR VOLUME 85.2 fl (80.0-96.0); MONO # 0.6 10^3/uL (0.0-0.8); MONO % 6.9 % (2.0-8.0); NEUTROPHILS # 5.5 10^3/uL (1.5-8.5); NEUTROPHILS % 62.2 % (36.0-66.0); PLATELET COUNT, AUTOMATED 342 10^3/uL (150-450); RED BLOOD COUNT 4.79 10^6/uL (4.00-5.40); WHITE BLOOD COUNT 8.8 10^3/uL (4.0-10.0)
[2023-02-17 15:24] LABS: HCG, SERUM QUALITATIVE NEGATIVE (NEGATIVE); LIPASE 38 U/L (12-53)
[2023-02-17 15:26] LABS: ALBUMIN 3.8 G/DL (3.2-5.2); ALKALINE PHOSPHATASE 83 U/L (46-116); ALT/SGPT 38 U/L (7.0-40); AST/SGOT 32 U/L (<34); BILIRUBIN,DIRECT < 0.1 MG/DL (<0.4); BILIRUBIN,TOTAL 0.3 MG/DL (0.3-1.2); BLOOD UREA NITROGEN 8 MG/DL (9-23); CALCIUM LEVEL 9.2 MG/DL (8.5-10.1); CARBON DIOXIDE LEVEL 26 MMOL/L (20-31); CHLORIDE LEVEL 105 MMOL/L (98-107); CREATININE FOR GFR 0.66 MG/DL (0.55-1.30); GLOMERULAR FILTRATION RATE > 60.0 (>58); GLUCOSE, FASTING 97 MG/DL (60-100); POTASSIUM SERUM 4.6 MMOL/L (3.5-5.1); SODIUM LEVEL 139 MMOL/L (136-145); TOTAL PROTEIN 7.2 G/DL (5.7-8.2)
[2023-02-17] MEDS ORDERED: NS 1,000 ML IV ONE (18:15)
[2023-02-17 19:04] LABS: C REACTIVE PROTEIN QUANTITATIV < 0.40 MG/DL (<1.0); CK-MB VALUE MASS < 1.0 NG/ML (<3.6); INR 1.12; MAGNESIUM LEVEL 1.8 MG/DL (1.8-2.4); PROTHROMBIN TIME 14.1 SECONDS (12.5-14.5)
[2023-02-17 19:05] LABS: PARTIAL THROMBOPLASTIN TIME 29.5 SECONDS (24.8-34.2)
[2023-02-17 19:08] LABS: D-DIMER QUANT 0.3 ug/mL (<0.5); FREE T4 1.04 NG/DL (0.89-1.76); THYROID STIMULATING HORMONE 1.298 uIU/ML (0.55-4.78)
[2023-02-17 19:13] LABS: CPK CREATINE PHOSPHOKINASE 85 U/L (34-145); MB/CK RELATIVE INDEX 1.17 (< OR =4)
[2023-02-17 19:24] LABS: RSV AMPLIFICATION NEGATIVE (NEGATIVE)
[2023-02-17 20:50] VITALS: BP 119/62; TEMP 98; O2SAT 97
== END 2023-02-17 20:56 | disposition home or self-care (01) ==
LOC: M ED 13:27
DX: K80.20 Calculus of gallbladder without cholecystitis without obstruction (principal); K21.9 Gastro-esophageal reflux disease without esophagitis; Z87.448 Personal history of other diseases of urinary system; G43.909 Migraine, unspecified, not intractable, without status migrainosus; F32.A Depression, unspecified; F41.9 Anxiety disorder, unspecified; Z88.1 Allergy status to other antibiotic agents; Z79.899 Other long term (current) drug therapy

== ENCOUNTER → 2023-06-27 | Outpatient (CLI) | payer OTHER | LOC: M WUC 12:31 | PROVIDERS: ATTEND Physician Assistant | DX: G89.29 Other chronic pain (principal); M54.50 Low back pain, unspecified; M51.36 Other intervertebral disc degeneration, lumbar region ==

== ENCOUNTER → 2023-07-29 | Outpatient (CLI) | payer OTHER | LOC: M RAD 09:16 | PROVIDERS: ATTEND Physician Assistant Medical | DX: R22.1 Localized swelling, mass and lump, neck (principal); Z90.89 Acquired absence of other organs ==

== ENCOUNTER 2023-08-25 10:02 | Emergency (ER) | payer OTHER ==
[~2023-08-25] VITALS: Ht 162.6 cm; Wt 87.0 kg
[2023-08-25] MEDS: AUGMENTIN 875 MG TAB PO ONE (12:46)
[2023-08-25] MEDS: ONDANSETRON 4MG ORAL DISINTEGRATING TAB PO ONE (12:47)
[2023-08-25] MEDS ORDERED: ONDA4TAB6 PO (12:49)
[2023-08-25] MEDS ORDERED: AMOX875T2 PO (12:49)
[2023-08-25 13:02] VITALS: BP 149/72; TEMP 97.8; O2SAT 98
== END 2023-08-25 13:31 | disposition home or self-care (01) ==
LOC: M ED 10:02
DX: R11.0 Nausea (principal); W55.01XA Bitten by cat, initial encounter; Z86.19 Personal history of other infectious and parasitic diseases; Z87.19 Personal history of other diseases of the digestive system; F17.210 Nicotine dependence, cigarettes, uncomplicated; F12.10 Cannabis abuse, uncomplicated; Z88.2 Allergy status to sulfonamides; Z79.2 Long term (current) use of antibiotics; Z79.899 Other long term (current) drug therapy

== ENCOUNTER 2023-09-29 09:54 | Day surgery (SDC) | payer OTHER ==
[~2023-09-29] VITALS: Ht 165.1 cm; Wt 86.8 kg
[2023-09-29] MEDS: NS 1,000 ML IV ONE (06:00)
[~2023-09-29 09:54] MED LIST changes: +AMOX875T2 PO; +ESSE250T PO; +ONDA-282 PO; +TUME1CAP PO
[2023-09-29] MEDS ORDERED: fentaNYL 100 MCG/2 ML INJECTION As Ordered ONE (10:26)
[2023-09-29] MEDS ORDERED: LIDOCAINE 2% 100MG/5ML SDV (FOR ANES.) As Ordered ONE (11:06)
[2023-09-29] MEDS ORDERED: propofoL 200 MG/20 ML VIAL As Ordered ONE (11:06)
[2023-09-29] MEDS ORDERED: ONDANSETRON 4MG 2ML VIAL As Ordered ONE (12:54)
[2023-09-29 12:57] VITALS: TEMP 98.2
[2023-09-29 13:15] VITALS: BP 105/53; O2SAT 99
== END 2023-09-29 13:25 | disposition home or self-care (01) ==
LOC: M OPP 09:54
PROVIDERS: ATTEND Internal Medicine Gastroenterology
DX: F45.8 Other somatoform disorders (principal); R12 Heartburn; K29.50 Unspecified chronic gastritis without bleeding; K31.89 Other diseases of stomach and duodenum; K22.89 Other specified disease of esophagus; Z79.899 Other long term (current) drug therapy; Z88.1 Allergy status to other antibiotic agents
CPT/HCPCS: 43239; 88305; 91035; J2405; J3010

== ENCOUNTER → 2023-11-02 | Outpatient (CLI) | payer OTHER ==
[2023-11-02 18:51] LABS: BASO # 0.1 10^3/uL (0.0-0.2); EOS # 0.1 10^3/uL (0.0-0.5); EOS % 0.8 % (0.0-3.0); HEMATOCRIT 37.1 % (36.0-47.0); HEMOGLOBIN 11.3 g/dl (12.0-15.5); LYMPH # 2.5 10^3/uL (1.5-5.0); LYMPH % 27.8 % (24.0-44.0); MEAN CORPUSCULAR HEMOGLOBIN 25.2 pg (27.0-33.0); MEAN CORPUSCULAR HGB CONC 30.5 g/dl (32.0-36.5); MEAN CORPUSCULAR VOLUME 82.6 fl (80.0-96.0); MONO # 0.6 10^3/uL (0.0-0.8); NEUTROPHILS # 5.6 10^3/uL (1.5-8.5); NEUTROPHILS % 63.1 % (36.0-66.0); PLATELET COUNT, AUTOMATED 371 10^3/uL (150-450); RED BLOOD COUNT 4.49 10^6/uL (4.00-5.40); WHITE BLOOD COUNT 8.8 10^3/uL (4.0-10.0)
[2023-11-02 19:13] LABS: ALBUMIN 3.7 G/DL (3.2-5.2); ALKALINE PHOSPHATASE 85 U/L (46-116); ALT/SGPT 13 U/L (7.0-40); AST/SGOT 13 U/L (<34); BILIRUBIN,TOTAL 0.4 MG/DL (0.3-1.2); BLOOD UREA NITROGEN 6 MG/DL (9-23); CALCIUM LEVEL 8.9 MG/DL (8.5-10.1); CARBON DIOXIDE LEVEL 27 MMOL/L (20-31); CHLORIDE LEVEL 104 MMOL/L (98-107); CHOLESTEROL LEVEL 267 MG/DL (<200); CHOLESTEROL RISK RATIO 4.08 (<5); CREATININE FOR GFR 0.63 MG/DL (0.55-1.30); GLOMERULAR FILTRATION RATE > 60.0 (>58); GLUCOSE, FASTING 82 MG/DL (60-100); HDL CHOLESTEROL 65.3 MG/DL (>40); LDL CHOLESTEROL 153.9 MG/DL (<100); NON-HDL-C 201.7 MG/DL; POTASSIUM SERUM 4.4 MMOL/L (3.5-5.1); SODIUM LEVEL 136 MMOL/L (136-145); TOTAL PROTEIN 6.8 G/DL (5.7-8.2); TRIGLYCERIDES LEVEL 239 MG/DL (<150)
[2023-11-02 19:15] LABS: FREE T4 1.02 NG/DL (0.89-1.76); THYROID STIMULATING HORMONE 1.281 uIU/ML (0.55-4.78)
== END ==
LOC: M WUC 13:36
PROVIDERS: ATTEND Physician Assistant
DX: E66.9 Obesity, unspecified (principal); Z90.09 Acquired absence of other part of head and neck; Z13.1 Encounter for screening for diabetes mellitus; Z13.220 Encounter for screening for lipoid disorders

== ENCOUNTER 2023-12-07 11:01 | Emergency (ER) | payer OTHER ==
[~2023-12-07] VITALS: Ht 165.1 cm; Wt 86.4 kg
[2023-12-07 11:03] VITALS: BP 127/88; TEMP 99; O2SAT 99
[2023-12-07] MEDS: ONDANSETRON 4MG ORAL DISINTEGRATING TAB PO ONE (12:28)
[2023-12-07] MEDS: IBUPROFEN 600MG TAB PO ONE (12:32)
[2023-12-07] MEDS ORDERED: ONDA-282 PO (12:35)
== END 2023-12-07 12:52 | disposition home or self-care (01) ==
LOC: M ED 11:01
DX: U07.1 COVID-19 (principal); Z88.1 Allergy status to other antibiotic agents; Z79.899 Other long term (current) drug therapy

== ENCOUNTER 2023-12-08 20:45 | Emergency (ER) | payer OTHER ==
[~2023-12-08] VITALS: Ht 165.1 cm; Wt 84.1 kg
[2023-12-08 20:56] VITALS: TEMP 97.9
[2023-12-08 21:33] LABS: INR 1.13; PARTIAL THROMBOPLASTIN TIME 26.8 SECONDS (24.8-34.2); PROTHROMBIN TIME 14.2 SECONDS (12.5-14.5)
[2023-12-08 21:46] LABS: CPK CREATINE PHOSPHOKINASE 73 U/L (34-145)
[2023-12-08 21:47] LABS: ALBUMIN 3.8 G/DL (3.2-5.2); ALKALINE PHOSPHATASE 80 U/L (46-116); ALT/SGPT 18 U/L (7.0-40); AST/SGOT 16 U/L (<34); BILIRUBIN,DIRECT 0.1 MG/DL (<0.4); BILIRUBIN,TOTAL 0.4 MG/DL (0.3-1.2); BLOOD UREA NITROGEN 6 MG/DL (9-23); CARBON DIOXIDE LEVEL 22 MMOL/L (20-31); CHLORIDE LEVEL 104 MMOL/L (98-107); CREATININE FOR GFR 0.73 MG/DL (0.55-1.30); GLOMERULAR FILTRATION RATE > 60.0 (>58); GLUCOSE, FASTING 99 MG/DL (60-100); POTASSIUM SERUM 3.2 MMOL/L (3.5-5.1); SODIUM LEVEL 135 MMOL/L (136-145); TOTAL PROTEIN 7.4 G/DL (5.7-8.2)
[2023-12-08 21:50] LABS: HEMATOCRIT 41.3 % (36.0-47.0); HEMOGLOBIN 13.9 g/dl (12.0-15.5); MEAN CORPUSCULAR HEMOGLOBIN 26.5 pg (27.0-33.0); MEAN CORPUSCULAR HGB CONC 33.7 g/dl (32.0-36.5); MEAN CORPUSCULAR VOLUME 78.8 fl (80.0-96.0); PLATELET COUNT, AUTOMATED 342 10^3/uL (150-450); RED BLOOD COUNT 5.24 10^6/uL (4.00-5.40); WHITE BLOOD COUNT 6.1 10^3/uL (4.0-10.0)
[2023-12-08 22:20] LABS: CK-MB VALUE MASS < 1.0 NG/ML (<3.6); MB/CK RELATIVE INDEX 1.36 (< OR =4)
[2023-12-08 22:24] LABS: THYROID STIMULATING HORMONE 0.509 uIU/ML (0.55-4.78)
[2023-12-08 22:27] LABS: FREE T4 1.58 NG/DL (0.89-1.76)
[2023-12-08 22:43] LABS: ANISOCYTOSIS 1+; ATYPICAL LYMPH 15 % (0-5); EOSINOPHILS 1 % (0-3); LYMPHOCYTES 21 % (16-44); MICROCYTOSIS 1+; MONOCYTES 9 % (0-5); NEUTROPHILS 54 % (28-66); PLATELET ESTIMATE NORMAL (NORMAL)
[2023-12-08 22:44] LABS: POIKILOCYTOSIS 1+
[2023-12-08 23:15] VITALS: BP 119/66; O2SAT 98
== END 2023-12-08 23:42 | disposition home or self-care (01) ==
LOC: EDBD 20:45 → M ED 20:45
DX: U07.1 COVID-19 (principal); R00.1 Bradycardia, unspecified; K21.9 Gastro-esophageal reflux disease without esophagitis; F17.210 Nicotine dependence, cigarettes, uncomplicated; F12.10 Cannabis abuse, uncomplicated; Z88.1 Allergy status to other antibiotic agents

== ENCOUNTER → 2023-12-20 | Outpatient (CLI) | payer OTHER | LOC: M RAD 09:25 | PROVIDERS: ATTEND Surgery | DX: D17.9 Benign lipomatous neoplasm, unspecified (principal) ==

== ENCOUNTER → 2024-02-13 | Outpatient (CLI) | payer OTHER | LOC: M WHC 10:10 | PROVIDERS: ATTEND Nurse Practitioner Family | DX: Z12.31 Encounter for screening mammogram for malignant neoplasm of breast (principal); Z53.9 Procedure and treatment not carried out, unspecified reason ==

== ENCOUNTER → 2024-02-29 | Outpatient (CLI) | payer OTHER | LOC: M WHC 13:09 | PROVIDERS: ATTEND Nurse Practitioner Family | DX: N64.4 Mastodynia (principal); N63.32 Unspecified lump in axillary tail of the left breast; R92.313 Mammographic fatty tissue density, bilateral breasts ==

== ENCOUNTER → 2024-03-12 | Outpatient (CLI) | payer OTHER | LOC: M WHC 10:09 | PROVIDERS: ATTEND Specialist | DX: N92.6 Irregular menstruation, unspecified (principal); D25.1 Intramural leiomyoma of uterus; N88.8 Other specified noninflammatory disorders of cervix uteri ==

== ENCOUNTER → 2024-03-23 | Outpatient (CLI) | payer OTHER ==
[2024-03-23 17:57] LABS: HEMATOCRIT 41.7 % (36.0-47.0); HEMOGLOBIN 14.1 g/dl (12.0-15.5); MEAN CORPUSCULAR HEMOGLOBIN 30.5 pg (27.0-33.0); MEAN CORPUSCULAR HGB CONC 33.8 g/dl (32.0-36.5); MEAN CORPUSCULAR VOLUME 90.1 fl (80.0-96.0); PLATELET COUNT, AUTOMATED 329 10^3/uL (150-450); RED BLOOD COUNT 4.63 10^6/uL (4.00-5.40); WHITE BLOOD COUNT 8.2 10^3/uL (4.0-10.0)
[2024-03-23 18:54] LABS: BLOOD UREA NITROGEN 8 MG/DL (9-23); CALCIUM LEVEL 9.4 MG/DL (8.5-10.1); CARBON DIOXIDE LEVEL 29 MMOL/L (20-31); CHLORIDE LEVEL 102 MMOL/L (98-107); CREATININE FOR GFR 0.66 MG/DL (0.55-1.30); GLOMERULAR FILTRATION RATE > 60.0 (>58); GLUCOSE, FASTING 91 MG/DL (60-100); MAGNESIUM LEVEL 1.9 MG/DL (1.8-2.4); POTASSIUM SERUM 4.5 MMOL/L (3.5-5.1); SODIUM LEVEL 138 MMOL/L (136-145)
[2024-03-23 18:57] LABS: THYROID STIMULATING HORMONE 1.373 uIU/ML (0.55-4.78)
== END ==
LOC: M RAD 17:03
PROVIDERS: ATTEND Physician Assistant
DX: R07.9 Chest pain, unspecified (principal); R89.1 Abnormal level of hormones in specimens from other organs, systems and tissues

== ENCOUNTER → 2024-11-05 | Outpatient (CLI) | payer OTHER ==
[~2024-11-05] MED LIST changes: -ESSE250T PO; +MAGN250T17 PO
== END ==
LOC: M RAD 11:02
PROVIDERS: ATTEND Nurse Practitioner Family
DX: M47.817 Spondylosis without myelopathy or radiculopathy, lumbosacral region (principal)

== ENCOUNTER 2024-12-26 10:45 | Outpatient (RCR) | payer OTHER ==
[~2024-12-26 10:45] MED LIST changes: -IBUP-1022 PO; +IBUP600T42 PO
== END 2025-01-01 ==
LOC: M PT 10:45
PROVIDERS: ATTEND Nurse Practitioner Family
DX: M54.50 Low back pain, unspecified (principal)

== ENCOUNTER → 2024-12-27 | Outpatient (CLI) | payer OTHER ==
[2024-12-27 14:55] LABS: CALCIUM LEVEL 8.7 MG/DL (8.5-10.1); CARBON DIOXIDE LEVEL 29 MMOL/L (20-31); CHLORIDE LEVEL 105 MMOL/L (98-107); CREATININE FOR GFR 0.67 MG/DL (0.55-1.30); GLOMERULAR FILTRATION RATE > 90.0 (>58); PHOSPHORUS LEVEL 4.0 MG/DL (2.5-4.9); POTASSIUM SERUM 4.6 MMOL/L (3.5-5.1); SODIUM LEVEL 137 MMOL/L (136-145)
== END ==
LOC: M WUC 11:54
PROVIDERS: ATTEND Nurse Practitioner Family
DX: M54.32 Sciatica, left side (principal)

== ENCOUNTER → 2024-12-31 | Outpatient (CLI) | payer OTHER ==
[~2024-12-31] MED LIST changes: +PROHANCE 279.3MG/ML 15ML VIAL ONE; +PROHANCE 279.3MG/ML 5ML VIAL ONE
== END ==
LOC: M PLAIMG 07:48
PROVIDERS: ATTEND Nurse Practitioner Family
DX: M54.32 Sciatica, left side (principal); M51.360 Other intervertebral disc degeneration, lumbar region with discogenic back pain only; M89.38 Hypertrophy of bone, other site; M48.061 Spinal stenosis, lumbar region without neurogenic claudication; M25.78 Osteophyte, vertebrae; M47.816 Spondylosis without myelopathy or radiculopathy, lumbar region

== ENCOUNTER 2025-01-02 10:38 | Outpatient (RCR) | payer OTHER ==
[~2025-01-02 10:38] MED LIST changes: -PROHANCE 279.3MG/ML 15ML VIAL ONE; -PROHANCE 279.3MG/ML 5ML VIAL ONE
== END 2025-02-01 ==
LOC: M PT 10:38
PROVIDERS: ATTEND Nurse Practitioner Family
DX: M54.50 Low back pain, unspecified (principal)

== ENCOUNTER → 2025-02-13 | Outpatient (CLI) | payer OTHER ==
[2025-02-13 18:13] LABS: BASO # 0.1 10^3/uL (0.0-0.2); BASO % 0.9 % (0.0-1.0); EOS # 0.2 10^3/uL (0.0-0.5); EOS % 2.0 % (0.0-3.0); LYMPH # 3.0 10^3/uL (1.5-5.0); LYMPH % 38.0 % (24.0-44.0); MONO # 0.7 10^3/uL (0.0-0.8); MONO % 8.8 % (2.0-8.0); NEUTROPHILS # 3.9 10^3/uL (1.5-8.5); NEUTROPHILS % 50.0 % (36.0-66.0); PLATELET COUNT, AUTOMATED 383 10^3/uL (150-450)
[2025-02-13 18:36] LABS: HCG, SERUM QUANTITATIVE < 2.6 MIU/ML (<4.2)
[2025-02-13 18:37] LABS: IRON (FE) 54 UG/DL (50-170)
[2025-02-13 18:38] LABS: PERCENT SATURATION 13.8 % (13.2-45.0)
[2025-02-13 18:40] LABS: LUTEINIZING HORMONE 4.4 mIU/ML
== END ==
LOC: M WUC 15:43
PROVIDERS: ATTEND Nurse Practitioner Family
DX: N92.1 Excessive and frequent menstruation with irregular cycle (principal)

== ENCOUNTER → 2025-03-06 | Outpatient (CLI) | payer OTHER | LOC: M WHC 11:29 | PROVIDERS: ATTEND Nurse Practitioner Family | DX: Z12.31 Encounter for screening mammogram for malignant neoplasm of breast (principal); R92.313 Mammographic fatty tissue density, bilateral breasts ==